=== PATIENT | male | born 1940 ===

== ENCOUNTER 2017-09-12 12:09 | Emergency (ER) | END 2017-09-12 12:16 | disposition E | LOC: ERS 12:09 → EDBD 12:09 → ERS 12:16 | DX: S01.91XA Laceration without foreign body of unspecified part of head, initial encounter (principal); I46.8 Cardiac arrest due to other underlying condition; V89.2XXA Person injured in unspecified motor-vehicle accident, traffic, initial encounter | CPT/HCPCS: G0390 ==